=== PATIENT | male | born 2000 | race Caucasian/White ===

== ENCOUNTER 2023-02-20 20:04 | Emergency (ER) | payer OTHER ==
[~2023-02-20] VITALS: Ht 165.1 cm; Wt 59.0 kg
[2023-02-20 20:04] VITALS: BP 134/83; PULSE 102; RESP 17; TEMP 97.6; O2SAT 98
[2023-02-20 21:57] VITALS: BP 138/81; PULSE 110; RESP 18; TEMP 98; O2SAT 98
== END 2023-02-20 21:58 ==
LOC: MED 20:04
DX: Z02.89 Encounter for other administrative examinations (principal); V49.88XA Car occupant (driver) (passenger) injured in other specified transport accidents, initial encounter; Y93.89 Activity, other specified; Y92.89 Other specified places as the place of occurrence of the external cause; Y99.8 Other external cause status
CPT/HCPCS: 99283